=== PATIENT | female | born 1990 | race Caucasian/White ===

== ENCOUNTER 2018-05-18 20:30 | Outpatient (CLI) | payer MEDICARE | END 2018-05-18 20:31 | disposition home or self-care (01) | LOC: SLEEPLAB 20:30 | PROVIDERS: ATTEND Internal Medicine | DX: G47.9 Sleep disorder, unspecified (principal); E66.9 Obesity, unspecified; R06.83 Snoring; F41.9 Anxiety disorder, unspecified; G47.33 Obstructive sleep apnea (adult) (pediatric); F31.9 Bipolar disorder, unspecified; G47.00 Insomnia, unspecified; Z68.41 Body mass index [BMI] 40.0-44.9, adult | CPT/HCPCS: 95811 ==

== ENCOUNTER 2019-06-30 16:28 | Outpatient (CLI) | payer MEDICARE ==
--- NOTE | 2019-06-30 17:18 | RAD ---
RIGHT FOOT THREE VIEWS: History: Foot injury. FINDINGS: There are calcaneal spurs present. There are no signs of fracture or dislocation. IMPRESSION: No evidence of fracture. POS: [facility]
== END 2019-06-30 16:29 | disposition home or self-care (01) ==
LOC: RAD 16:28
PROVIDERS: ATTEND Family Medicine
DX: S99.921A Unspecified injury of right foot, initial encounter (principal)